=== PATIENT | male | born 1980 | race Caucasian/White ===

== ENCOUNTER 2025-05-01 07:55 | Emergency (ER) | payer MEDICAID, SELFPAY ==
[2025-05-01 08:00] VITALS: BP 134/94; PULSE 89; O2SAT 98
[2025-05-01 08:02] VITALS: BP 134/94; PULSE 84; RESP 16; TEMP 37.1; O2SAT 99; BMI 25.0
--- OUTSIDE RECORDS SUMMARY | 2025-05-01 08:25 | XMS_ITS | Patient Health Record ---
Author Organization [facility] Address [address] [address] Care Team Providers Care Lining Baster Name Role Phone Magali Castañeda Unavailable [phone] Elsie Simmons Unavailable [phone] Allergies No Known Allergies Results Component Value Reference Range Flag Notes T. vaginalis Reviewed date:11/02/2024 05:30:18 PM Interpretation: Performing Lab: Notes/Report: Trichomonas vaginalis Not Detected Not Detected Syphilis with Reflex to RPR Titer and TP-PA Confirmation Reviewed date:11/02/2024 05:30:18 PM Interpretation: Performing Lab: Notes/Report: Syphilis NON REACTIVE NON REACTIVE N Syphilis is for the qualitative detection of antibodies (IgG and IgM) directed against Treponema pallidum (TP) Result analyzed by [facility] Qu[facility]ON TB Reviewed date:11/03/2024 10:37:36 AM Interpretation: Performing Lab: Notes/Report: Nil 0.0453 N TB1-Antigen 0.0419 N TB2-Antigen 0.0442 N Mitogen >10.0 N Interpretation NEGATIVE N M. tuberculosis infection NOT likely (Ref Interval: Negative) Interpretive Data: Interferon gamma release is measured for specimens from each of the four collection tubes. A qualitative result (Negative, Positive, or Indeterminate) is based on interpretation of the four values, NIL, MITOGEN minus NIL (MITOGEN-NIL), TB1 minus NIL (TB1-NIL), and TB2 minus NIL (TB2- NIL). The NIL value represents nonspecific reactivity produced by the patient specimen. The MITOGEN-NIL value serves as the positive control for the patient specimen, demonstrating successful lymphocyte activity. The TB1-NIL tube specifically detects CD4+ lymphocyte reactivity, specifically stimulated by the TB1 antigens. The TB2-NIL tube detects both CD4+ and CD8+ lymphocyte reactivity, stimulated by TB2 antigens. An overall Negative result does not completely rule out TB infection. A false-positive result in the absence of other clinical evidence of TB infection is not uncommon. Refer to: Updated Guidelines for Using Interferon Gamma Release Assays to Detect Mycobacterium tuberculosis Infection --- [place], 2010 (http://www.cdc.gov/mmw r/preview/mmwrhtml/rr59 05a1 .htm), for more information concerning test performance in low-prevalence populations and use in occupational screening. HIV Ag/Ab with Reflex to HIV Types 1 and 2 Antibody Differentiation Reviewed date:11/02/2024 05:30:18 PM Interpretation: Performing Lab: Notes/Report: HIV Ag/Ab NON REACTIVE NON REACTIVE N Result jessi lyzed by [facility] HCV AB with Reflex to Quanti ty and Reflex to Genotyping Reviewed date:11/03/2024 10:37:36 AM Interpretation: Performing Lab: Notes/Report: Result analyzed by [facility] Hepatitis C Antibody REACTIVE NON REACTIVE A Hepatitis B Total Core Antib leticia Reviewed date:11/02/2024 05:30:18 PM Interpretation: Performing Lab: Notes/Report: Hepatitis B Total Core Antibody REACTIVE NON REACTIVE A Result analyzed by [facility] Hepatitis B Surface Antigen Reviewed date:11/02/2024 05:30:18 PM Interpretation: Performing Lab: Notes/Report: Hepatitis B Surface Antigen NON REACTIVE NON REACTIVE N Result analyzed by [facility] Hepatitis B Surface Antibody Reviewed date:11/02/2024 05:30:18 PM Interpretation: Performing Lab: Notes/Report: Hepatitis B Surface Antibody REACTIVE NON REACTIVE A Result analyzed by [facility] Chlamydia and Gonorrhea Pane l Reviewed date:11/02/2024 05:30:17 PM Interpretation: Performing Lab: Notes/Report: Chlamydia trachomatis Not Detected Not Detected Neisseria gonorrhoeae Not Detected Not Detected Comprehensive Metabolic Pane l (CMP) Reviewed date:11/02/2024 05:30:18 PM Interpretation: Performing Lab: Notes/Report: Glucose 99 70-99 mg/dL N Sodium (Na) 141 136-145 mmol/L N Potassium (K) 4.2 3.5-5.1 mmol/L N Chloride 108 98-107 mmol/L H CO2 23 22-31 mmol/L N Urea (BUN) 13 7-21 mg/dL N Creatinine 0.84 0.72-1.25 mg/dL N BUN/CREAT_Ratio 15 N eGFR 109.5 >59 mL/ min/ 1.73m^2 N Calcium 8.7 8.4-10.2 mg/dL N Anion Gap 10 4-12 N Alk Phos 91 40-150 U/L N ALT 149 0-45 U/L H AST 103 11-34 U/L H T. Protein 6.3 6.4-8.3 g/dL L Albumin 3.6 3.5-5.0 g/dL N T. Bilirubin 0.6 0.2-1.2 mg/dL N Globulin 2.7 1.5-4.5 g/dL N A/G Ratio 1.3 N Hepatitis C Virus Genotype b y Sequencing Reviewed date:11/03/2024 10:37:36 AM Interpretation: Performing Lab: Notes/Report: Hepatitis C Virus Genotype by Sequencing 3a N Hepatitis C Viral RNA is prepared for sequencing by amplifying a unique sequence in the 5' untranslated region (5' UTR) of the viral genome. Dye-Terminator chemistry is used to produce forward and reverse sequences of amplified nucleic acid. Sequencing data is interpreted via comparison to a Basic Local Alignment Search Tool (BLAST) of characterized sequences. There are 6 major genotypes of hepatitis C virus (1-6) which can subtyped further according to variations in sequences. This laboratory developed test's performance characteristics were determined by [facility]. It has not been cleared or approved by the US Food and Drug Administration. This test was performed in a CLIA and CAP certified laboratory and is intended for clinical purposes. This test was developed and it's performance characteristics determined by [facility]. It has not been cleared or approved by the US Drug and Food Administration. Result analyzed by [facility] [employer] CBC with Diff Reviewed date:11/02/2024 05:30:18 PM Interpretation: Performing Lab: Notes/Report: WBC 4.94 3.8-10.7 10e3/uL N RBC 5.18 3.9-5.8 10e6/uL N HGB 17.9 12-17.5 g/dL H HCT 52.2 35.8-52.9 % N MCV 101.0 78.89-101.00 fL N MCH 34.6 26-34 pg H MCHC 34.3 32-35 g/dL N RDW 12.8 12.6-15.7 % N PLT 128.00 150-450 10e3/uL L MPV 8.94 6.8-10.7 fl N NEUT % 55.30 40.8-77.3 % N LYMPH % 28.4 14.5-48.7 % N MONO % 11.60 4-11.9 % N EO % 2.34 0.4-7.3 % N BASO % 0.65 0-1.6 % N NEUT # 2.74 1.9-7.3 10e3/uL N LYMPH # 1.40 0.9-3.8 10e3/uL N MONO # 0.57 0.2-0.9 10e3/uL N EO # 0.12 0-0.5 10e3/uL N BASO # 0.03 0-0.1 10e3/uL N DIFF TYPE NONE N Result analyze d by [facility] Hepatitis (HCV) Quant NAAT w /Reflex to Genotyping ([facility]) Reviewed date:11/03/2024 10:37:36 AM Interpretation: Performing Lab: Notes/Report: HCV Qnt (IU/mL) 7,975,782 N HCV Qnt (log IU/mL) 6.9 N HCV Qnt Interp Current HCV Infection A Provide guidance for treatment and care based on current national HCV treatment guidelines for diagnosis and viral load assessment of HCV. HCV by Quantitative NAAT is a real time TMA test. Not Detected does not rule out the presence of inhibitors in the patient specimen or hepatitis C virus RNA concentrations below the level of detection of the test. Care should be taken when interpreting any single viral load determination. This test should not be used for blood donor screening, associated re- entry protocols, or for screening Human Cell, Tissues and Cellular Tissue-Based Products (HCT/P). Result analyzed by [facility] Reason For Referral No Information Medications Medication SIG (Take, Route, Frequency, Duration) Notes Start Date End Date Status hydrOXYzine HCl 25 MG Tablet 1 tablet as needed Orally 3 x day; Duration: 30 days 10/27/2024 Active buPROPion HCl ER (XL) 150 MG Tablet Extended Release 24 Hour 1 tablet in the morning Orally Once a day; Duration: 30 days 10/27/2024 Active traZODone HCl 50 MG Tablet 1 tablet Oral ly Bedtime; Duration: 30 days 10/27/2024 Active Social History Tobacco Use: Social History Observation Description Date Details (start date - stop date) Current Smoker NA - NA Sex Assigned At : Social History Observation Description Sex Assigned At Male Social History Sexual History: Social Info Question Answer Notes Sexual History Had sex in the past 12 months (vaginal, oral, or anal)? Yes with Women only Use protection? Yes Have you ever had a Sexually transmitted disease ? No Drug and Alcohol Risk Assess ment Social Info Question Answer Notes CRAFFT V2.1 1. Drink more than a few sips of beer, wine, or any drink containing alcohol? Say 0 if none 30 2. Use any marijuana (cannab is, weed, oil, wax, or hash by smoking, vaping, dabbing, or in edibles) or synthetic marijuana: (like K2 , Spice )? Say 0 if none 0 3. Use anything else to get high (like other illegal drugs, pills, prescription or wnaz-aoh-kbvhmyr medications, and things that you sniff, yee, vape, or inject)? Say 0 if none 270 Have you ever ridden in a [place] R driven by someone (including yourself) who was high or had been using alcohol or drugs? Yes Do you ever use alcohol or d rugs to RELAX, feel better about yourself, or fit in? No Do you ever use alcohol or drugs while you are b y yourself, or ALONE? Yes Do you ever FORGET things you did while using al cohol or drugs? Yes Do your FAMILY or FRIENDS ev er tell you that you should cut down on your drinking or drug use? Yes Have you ever gotten into TROUBLE while you were using alcohol or drugs? Yes Household: Social Info Question Answer Notes Household Marital status: single Number of children in household: 1 Drug/Alcohol: Social Info Question Answer Notes AUDIT-C (Standard) Did you have a drink containing alcohol in the past year? Yes How often did you have a drink containing alcohol in the past year? 2 to 4 times a month (2 points) How many drinks did you have on a typical day when you were drinking in the past year? 1 or 2 drinks (0 point) How often did you have six or more drinks on one occasion in the past year? Never (0 point) Points 2 Interpretation Negative Tobacco Use: Social Info Question Answer Notes Tobacco Control (Standard) Tobacco use: Current smoker How often do you smoke cigarettes? Every day How many cigarettes a day do you smoke? 11-20 How soon after you wake up do you smoke your first cigarette? Within 5 minutes Are you interested in quitting? Not ready to quit Additional Findings: Tobacco user Modera te cigarette smoker (10-19 cigs/day) Additional Details Category Social Info Options Details Medication(s) previously use d for withdrawal and/or MAT and efficacy of that? Suboxone/Buprenorphine yes, It has been a while Methamphetamine First Use 34 y/o Last Use 10/26/2024 Frequency/Duration daily Amount Does not know Method Nasal Suboxone/Zubsolv First Use 27 y/o Last Use Does not know Frequency/Duration daily Amount 16 mg Method Oral Benzodiazepines First Use 18 y/o Last Use 2010 Frequency/Duration daily Amount 5-8 pills Method Oral Problems Problem Type SNOMED Code ICD Code Onset Dates Problem Status W/U Status Risk Notes Problem Generalized anxiety disorder (06561346) Anxiety, generalized (F41.1) Active confirmed Problem Chronic insomnia (991484985) Chronic insomnia (F51.04) Active confirmed Problem Opioid use disorder (9413212501) Opioid use disorder (F11.90) Active confirmed Problem Moderate major depression (551896) Moderate major depression (F32.1) Active confirmed Problem Stimulant dependence (720958497) 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) Active confirmed Vital Signs Heart Rate 74 /min 11/05/2024 Temperature 97.2 degrees Fahrenheit 11/05/2024 Respiratory Rate 18 /min 11/05/2024 Height-cm 187.96 cm 11/05/2024 Oximetry 96 % 11/05/2024 Blood pressure diastolic 72 mm Hg 11/05/2024 Weight-kg 93.89 kg 11/05/2024 Height 74 in 11/05/2024 Blood pressure systolic 124 mm Hg 11/05/2024 Weight 207 lbs 11/05/2024 BMI 26.57 kg/m2 11/05/2024 Encounters Encounter Location Date Provider Diagnosis [facility] [address] [facility] [address] [place] [address] 10/27/2024 Maagli Castañeda Severe methamphetami ne dependence F15.20 ; Moderate major depression F32.1 ; Anxiety, generalized F41.1 ; Chronic insomnia F51.04 ; High risk heterosexual behavior Z72.51 and Tuberculosis screening Z11.1 [facility] [address] [facility] [address] [place] [address] 11/02/2024 Magali Castañeda Opioid use disorder F11.90 [facility] [address] [facility] [address] [place] [address] 11/05/2024 Elsie Simmons Opioid use disorder F11.90 Assessments Encounter Date Diagnosis (ICD Code) Assessment Notes Treatment Notes Treatment Clinical Notes Section Notes 10/27/2024 Moderate major depression (ICD-10 - F32.1) 10/27/2024 Severe methamphetamine dependence (ICD-10 - F15.20) 11/02/2024 Opioid use disorder (ICD-10 - F11.90) 11/05/2024 Opioid use disorder (ICD-10 - F11.90) Continue 4mg Suboxone SL QD. Follow up 1 week to see if ready to taper or wants to stay on MAT. Educated on zero tolerance of concomitant use of benzodiazepines. Educated on mandatory participation in counseling, drug testing, and appointments. Educated on overdose prevention. Educated on alternatives. Will continue to be monitored while in residential treatment. PMPD attempted to be reviewed. Unavailable at the time. Questions answered, pt expressed understanding and agrees to POC. 10/27/2024 Anxiety, generalized (ICD-10 - F41.1) 10/27/2024 Chronic insomnia (ICD-10 - F51.04) 10/27/2024 High risk heterosexual behavior (ICD-10 - Z72.51) 10/27/2024 Tuberculosis screening (ICD-10 - Z11.1) Plan Of Treatment No Information Insurance Providers Payer Name Payer Address Payer Phone Subscriber Number Group Number Insured Name Patient Relationship to Insured Coverage Start Date Coverage End Date [facility] Medicaid [address] [address] [place], [place] [id number] Sterling Hugo Self - patient is the insured 0 Medical (General) History Surgical History Surgery Date(Month/Year)
--- NOTE | 2025-05-01 09:07 | ED_ITS ---
Discharge Plan Disposition Patient Disposition: Xfer Other Condition: Good Prescriptions Prescriptions: No Action No Known Home Medications Referrals Follow up/Referrals: Provider,Referral, MD [Primary Care Provider, Medical] - See instructions Activity Restrictions/Add. Instructions Additional Instructions/Restrictions: PLease present to [facility] ER for further evaluation by Ophthalmology. This is located at [address] [place] [address]. Clinical Impressions Clinical Impression: Acute hemorrhagic conjunctivitis of both eyes, Acute hemorrhagic conjunctivitis Stand Alone Forms Stand Alone Forms: Transfer Record - ED Print Language Print Language: Malawian Discharge ED Provider: Bakari Sullivan Adult HPI General Chief complaint: Eye Problems Stated complaint: Eyes blood shot & leaking Time Seen by Provider: 05/01/25 08:04 Mode of Arrival: Ambulatory Source of Information: Patient Description of Symptoms (Recalled from ER Triage Doc. by RN): Patient presents to ED for bilateral eye redness with drainage for 4 days. 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 States no problems with vision. History of Present Illness HPI narrative: This is a 44-year-old male patient, with past medical history of IV drug use most recently 6 months ago, who is presented to the emergency department today for evaluation of bilateral eye inflammation. Patient provides a mixed history. He tells me that approximately 5 days ago he had sex with a new partner and performed oral sex. He states that 2 days afterwards he began developing bilateral eye redness and subconjunctival hemorrhage. Additionally, the patient also states that since the onset of his symptoms he has had abnormal rhinorrhea and congestion with frequent blowing of the nose. He has not had any bleeding from his oral mucous membranes as well as hematuria. He is not having any dysuria or increased urinary frequency. No sore throat. No fevers. Related Data Home Medications ?Medication ?Instructions ?Recorded ?Confirmed No Known Home Medications 05/01/2502/17 Allergies Allergy/AdvReac Type Severity Reaction Status Date / Time No Known Allergies Allergy Verified 05/01/25 08:09 [facility] Disclaimer: The information contained in this section may have been updated after the patient was seen, as this information can be updated by other users. Social History Smoking Status: Current every day smoker alcohol intake: current current occupational status: employed Travel in the last 8 weeks?: None ROS Obtained: Yes Systems reviewed as appropriate & no additional complaints except as documented Physical Exam General General appearance: other (See MDM) Respiratory Respiratory exam: Present other (See MDM) Cardiovascular Cardiovascular exam: Present other (See MDM) Neurological Exam Neurological exam: Present other (See MDM) Medical Decision Making Medical Records Medical records reviewed: Yes I reviewed the patient's medical records. Screening: Per USPSTF and CDC recommendations, given the prevalence of disease in our region, it is our hospital?s policy to screen for HIV and viral Hepatitis for all patients aged 18 and over and those with ongoing risk factors. Reese Inquiry Pt receiving controlled substance: No Reese was queried for this patient: No Vital Signs: 05/01/25 08:00 05/01/25 08:02 05/01/25 08:02 Temperature 98.7 F 98.7 F Temperature Source Oral Pulse Rate 89 84 Pulse Rate [Right] 84 Respiratory Rate 16 16 Blood Pressure 134/94 H 134/94 H Blood Pressure [Right Arm] 134/94 H Blood Pressure Mean [Right Arm] 107 02 Sat by Pulse Oximetry 98 99 99 Orders (Tests/Meds): ED MEDICATIONS Discontinued Medications Generic Name Dose Route Start Last Admin Trade Name Sekouq PRN Reason Stop Dose Admin Ceftriaxone Sodium 500 mg 05/01/25 09:11 05/01/25 09:24 Ceftriaxone 500mg Vial IM 05/01/25 09:12 500 mg ONCE ONE Administration Fluorescein Sodium 1 mg 05/01/25 09:05 05/01/25 09:10 Fluorescein Sodium 1mg Strip OP 05/01/25 09:06 1 mg ONCE ONE Administration Lidocaine HCl 0 ml 05/01/25 09:11 05/01/25 09:24 Lidocaine 1% 5ml Pf Vial IM 05/01/25 09:12 1 ml ONCE ONE Administration Tetracaine HCl 0 ml 05/01/25 09:02 05/01/25 09:10 Tetracaine 0.5% Opth Dora 15ml OP 05/01/25 09:03 15 ml ONCE ONE Administration ORDERS Category Date Time Status Full Resp Panel w/COVID ([facility]) Routine Lab 05/01/25 09:18 Received Urine Chlam/Gono/Trich ([facility]) Stat Lab 05/01/25 09:14 Received Medical Decision Narrative: In summary, this is a 44-year-old male patient who is presenting to the emergency department today for evaluation of bilateral red eyes in the setting of both viral illnesses as well as in the setting of a new sexual partner which he fears has a sexually transmitted infection. Comorbidities include history of IV drug use approximately 6 months ago. On initial evaluation of the patient they were resting comfortably in no acute distress and nontoxic in appearance. They are hemodynamically stable, saturating well room air, and are neurologically intact. On physical examination of the patient he has bilateral findings of conjunctivitis with subconjunctival hemorrhage consistent with hemorrhagic conjunctivitis. He has no clouding of the cornea. Pupils are equal round and reactive to light. Visual acuities are consistent with his baseline. Extraocular movements are intact and visual jaramillo are full. Differential diagnosis includes gonorrheal conjunctivitis, chlamydial conjunctivitis, enteroviral hemorrhagic conjunctivitis, coxsackie hemorrhagic conjunctivitis, among others. I have considered the possibility of embolic phenomenon of indolent endocarditis however the patient is not experiencing any fevers and does not have any murmurs on exam. There is no secondary findings of endocarditis such as Osler nodes or Janeway lesions. I did proceed with fluorescein staining of the eye and found that there is no evidence of corneal ulceration or corneal abrasions. I also performed a slit-lamp examination and found that the corneal surface is intact and there does not appear to be any inflammatory infiltrates within the anterior chamber. Ultimately I did perform a full viral respiratory panel to test for coxsackie and enteroviral infection and I also performed gonorrhea and chlamydia swabs of the eye, however this is a send out test that will take 5 to 7 days to return. Therefore I had a shared decision make discussion with the patient and we decided to treat him empirically with 500 mg of IM Rocephin here in the emergency department. My initial plan was to discharge the patient home with doxycycline and have him follow-up in the ophthalmology clinic at . After discussion this patient thoroughly with the transfer center at as well as with Dr. Seth of the ophthalmology service they felt that he needed more emergent evaluation with a secure diagnosis and treatment plan for gonorrheal conjunctivitis as this could result in corneal perforation and permanent blindness. Therefore they have requested that we transfer the patient to [facility] emergency department for further evaluation with ophthalmology. Patient will be transferred by POV. He remains in stable condition. Critical Care Critical Care Time Critical Care Time: No
--- NOTE | 2025-05-01 09:09 | PC.NURSE ---
currently on phone with [facility] for pt consult with ophthalmology for bilateral hemorrhagic conjunctivitis. [facility] advised they will call back.
[2025-05-01] MEDS: TETRACAINE 0.5% OPTH SOL 15ML OP (09:10)
[2025-05-01] MEDS: FLUORESCEIN SODIUM 1MG STRIP 1 MG OP (09:10)
--- NOTE | 2025-05-01 09:14 | PC.NURSE ---
Dr Sullivan is currently on phone with MD Dr Hammer
[2025-05-01] MEDS: LIDOCAINE 1% 5ML PF VIAL IM (09:24)
[2025-05-01 09:26] LABS: Chlamydophila Pneumoniae, PCR Not Detected (NotDetected); Coronavirus 19, PCR Not Detected (NotDetected); Coronovirus HKU1,PCR Not Detected (NotDetected); Influenza A, PCR Not Detected (NotDetected); Influenza AH1, 2009 Not Detected (NotDetected); Influenza AH1, PCR Not Detected (NotDetected); Influenza AH3,PCR Not Detected (NotDetected); Influenza B, PCR Not Detected (NotDetected); Mycoplasma Pneumoniae, PCR Not Detected (NotDetected); Parainfluenza 1, PCR Not Detected (NotDetected); Parainfluenza 2, PCR Not Detected (NotDetected); Parainfluenza 3, PCR Not Detected (NotDetected); Parainfluenza 4, PCR Not Detected (NotDetected)
[2025-05-01 09:36] VITALS: BP 135/89; PULSE 74; RESP 16; TEMP 37.1; O2SAT 99
[2025-05-01 11:44] LABS: Adenovirus,PCR Detected (NotDetected)
== END 2025-05-01 09:44 | disposition other institution (70) ==
PROVIDERS: Emergency Provider Student in an Organized Health Care Education/Training Program
DX: B30.3 Acute epidemic hemorrhagic conjunctivitis (enteroviral) (principal)
CPT/HCPCS: 0223U; 87491; 87591; 87661; 96372; 99283; J0696; J2003